=== PATIENT | male | born 1935 | race Caucasian/White ===

== ENCOUNTER → 2017-06-08 | Outpatient (CLI) | payer MEDICARE ==
[2017-06-08 13:20] LABS: HEMOGLOBIN 16.6 g/dL (14.1-18.0); LYMPH # 3.6 K/mm3 (0.7-4.5); LYMPH % 37.8 % (10-50)
[2017-06-08 14:11] LABS: BUN 19 mg/dL (7-18)
[2017-06-08 14:30] LABS: GFR (ESTIMATED) 45 ML/MIN (>60)
== END ==
LOC: CARL-LAB 07:07
PROVIDERS: Nurse Practitioner Family
DX: I65.23 Occlusion and stenosis of bilateral carotid arteries (principal); N18.3 Chronic kidney disease, stage 3 (moderate); E03.9 Hypothyroidism, unspecified; E78.4 Other hyperlipidemia